=== PATIENT | female | born 1945 | race Caucasian/White ===

== ENCOUNTER 2017-04-28 09:36 | Outpatient (CLI) | payer MEDICARE ==
--- NOTE | 2017-04-28 10:48 | RAD ---
TWO VIEW CHEST: HISTORY: Bronchitis. Cough and fever. COMPARISON: 02/28/14. FINDINGS: The lungs are well aerated and clear. No evidence of infiltrate. Heart and mediastinum are unremark able. IMPRESSION: No acute process identified. POS: [facility]
== END 2017-04-28 09:37 | disposition home or self-care (01) ==
LOC: SCSRAD 09:36
PROVIDERS: ATTEND Family Medicine
DX: J40 Bronchitis, not specified as acute or chronic (principal)
CPT/HCPCS: 71020

== ENCOUNTER 2018-12-21 10:54 | Outpatient (CLI) | payer MEDICARE ==
--- NOTE | 2018-12-21 11:27 | RAD ---
XR Foot Rt 3 View STANDARD HISTORY: Right foot pain FINDINGS: Degenerative changes are present. No dislocation or bony destruction is identified. There is a planta r calcaneal spur. There is linear sclerosis of the neck of the proximal findings of the fourth digit. Possibility of an impacted fracture cannot be excluded. Clinical correlation is recommended.
== END 2018-12-21 10:55 | disposition home or self-care (01) ==
LOC: SCSRAD 10:54
PROVIDERS: ATTEND Family Medicine
DX: M79.671 Pain in right foot (principal)

== ENCOUNTER 2019-04-17 12:38 | Outpatient (CLI) | payer MEDICARE ==
--- NOTE | 2019-04-17 12:55 | RAD ---
XR Elbow Rt 2 View INDICATION: Right elbow pain and injury FINDINGS: Bones: No acute fracture or subluxation is evident.. Joints: No joint capsular distention. Radiocapitellar alignment appears within normal limits. 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 Soft tissues: No radiopaque foreign body is evident. IMPRESSION: No acute osseous abnormality.
== END 2019-04-17 12:39 | disposition home or self-care (01) ==
LOC: SCSRAD 12:38
PROVIDERS: ATTEND Family Medicine
DX: M25.521 Pain in right elbow (principal)